=== PATIENT | female | born 1980 | race Asian ===

== ENCOUNTER 2021-09-22 23:37 | Emergency (ER) | payer BC ==
[~2021-09-22] VITALS: Ht 157.5 cm; Wt 44.0 kg
--- NOTE | 2021-09-22 23:55 | NUR ---
PT BIBRA 878 FOR ETOH. PLACED IN BED 13 ON MONITOR AND PULSE OX. AWAITING ER MD FOR EVAL AND ORDERS.
--- NOTE | 2021-09-23 04:16 | NUR ---
PT A, OX4, AMBULATORY W/ STEADY GAITS. PO INTAKE TOLERATED WELL. REPORTING FEELING WELL AND WILLING TO LEAVE. MD MADE AWARE. STABLE FOR D/C PER MD.
--- NOTE | 2021-09-23 04:30 | NUR ---
Patient discharged to home in stable condition. Written and verbal after care instructions given. Patient verbalizes understanding of instruction.
[2021-09-23 04:31] VITALS: BP 119/72
== END 2021-09-23 04:31 | disposition home or self-care (01) ==
LOC: ER 23:42
DX: F10.129 Alcohol abuse with intoxication, unspecified (principal); R11.10 Vomiting, unspecified; Y90.9 Presence of alcohol in blood, level not specified
CPT/HCPCS: 82962-TC